=== PATIENT | male | born 1965 | race Hispanic/Latino ===

== ENCOUNTER 2018-08-31 18:19 | Emergency (ER) | payer OTHER ==
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
[2018-08-31] MEDS ORDERED: TORADOL IM STA (19:28)
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
[2018-08-31 21:37] VITALS: BP 128/82
== END 2018-08-31 21:38 | disposition home or self-care (01) ==
LOC: ED 18:19
DX: M54.2 Cervicalgia (principal); M25.512 Pain in left shoulder; V89.2XXA Person injured in unspecified motor-vehicle accident, traffic, initial encounter; Y93.89 Activity, other specified; Y92.410 Unspecified street and highway as the place of occurrence of the external cause; Y99.8 Other external cause status
CPT/HCPCS: 72040; 73030; 96372; 99283; J1885